=== PATIENT | female | born 2000 | race American Indian/Alaskan Native ===

== ENCOUNTER 2018-07-06 21:15 | Emergency (ER) | payer SELFPAY ==
[2018-07-06] MEDS ORDERED: XYLOCAINE 2%/EPI 1:100,000 INFILTRATI ONE (22:31)
[2018-07-06] MEDS ORDERED: REGLAN IV ONE (22:31)
[2018-07-06] MEDS ORDERED: BENADRYL IV ONE (22:31)
--- NOTE | 2018-07-06 22:36 | Emergency Department Report ---
ED General Adult HPI - General Chief complaint: Seizure Stated complaint: HDZ Time Seen by Provider: 07/06/18 22:12 Source: patient, EMS (ems notes not available at time of chart dictation), RN notes reviewed Mode of arrival: Stretcher Limitations: No Limitations - History of Present Illness Initial comments: This is a 18-year-old female who is not known to this provider previously. 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 She reports no chronic medical conditions. She presents to the ER today with the complaints of headache, and possible seizure. She reports that at 8:30 PM, she was in her usual state of health when she experienced a left-sided stabbing headache. She reports the headache lasted until she got to the emergency room, and reports that a remained at the same level of intensity. She reports the headache was the same intensity during the entire duration of the headache. She did not have nausea or vomiting. The headache did not radiate anywhere, and she endorses no exacerbating or relieving factors. She reports no nausea or vomiting. She reports no neck pain or neck stiffness. She further reports that she had a headache similar to this one year ago, does not think that it was stronger. She currently has no complaints at this time, and indicates that her headache has mostly resolved. She may have had some convulsive activity in the field, but she can't recall. She denies chest pain, abdominal pain, shortness of breath, extremity weakness, extremity numbness. She has no family history of aneurysmal subarachnoid hemorrhage that she can recall. -: Sudden Location: face Radiation: non-radiation Consistency: now resolved Improves with: none Worsens with: none Associated Symptoms: headaches, seizure. denies: confusion, chest pain, cough, diaphoresis, fever/chills, loss of appetite, malaise, nausea/vomiting, rash, shortness of breath, weakness - Related Data Allergies Allergy/AdvReac Type Severity Reaction Status Date / Time No Known Allergies Allergy Verified 07/06/18 22:41 ED Review of Systems ROS: Stated complaint: HDZ Other details as noted in HPI Constitutional: denies: fever Eyes: denies: eye discharge ENT: denies: epistaxis Respiratory: denies: cough Cardiovascular: denies: chest pain Gastrointestinal: denies: abdominal pain Genitourinary: denies: dysuria Musculoskeletal: denies: back pain Skin: denies: lesions Neurological: headache Psychiatric: anxiety ED Past Medical Hx - Past Medical History Previous Medical History?: Yes Hx Seizures: Yes Additional medical history: anxiety - Surgical History Past Surgical History?: No - Social History Smoking Status: Current Every Day Smoker Substance Use Type: None ED Physical Exam - General Limitations: No Limitations General appearance: alert, in no apparent distress - Head Head exam: Present: atraumatic, normocephalic - Eye Eye exam: Present: normal appearance, PERRL, EOMI, other (visual acuity intact to finger counting, color perception, reading at a close distance). Absent: nystagmus - ENT ENT exam: Present: normal exam, normal orophraynx, mucous membranes moist, normal external ear exam - Neck Neck exam: Present: normal inspection, full ROM. Absent: tenderness, meningismus - Respiratory Respiratory exam: Present: normal lung sounds bilaterally. Absent: respiratory distress - Cardiovascular Cardiovascular Exam: Present: regular rate, normal rhythm, normal heart sounds. Absent: bradycardia, tachycardia, irregular rhythm, systolic murmur, diastolic murmur, rubs, gallop - GI/Abdominal GI/Abdominal exam: Present: soft, normal bowel sounds. Absent: distended, tenderness, guarding, rebound, rigid, pulsatile mass - Extremities Exam Extremities exam: Present: normal inspection, full ROM, normal capillary refill , other (2+ pulses noted in the bilateral upper, lower extremities. Compartments soft. No long bony tenderness. The pelvis is stable.). Absent: pedal edema, joint swelling, calf tenderness - Back Exam Back exam: Present: normal inspection, full ROM. Absent: tenderness, CVA tenderness (R), paraspinal tenderness, vertebral tenderness - Neurological Exam Neurological exam: Present: alert, oriented X3, CN II-XII intact, normal gait, other (Extraocular movements intact. Tongue midline. No facial droop. Facial sensation intact to light touch in the V1, V2, V3 distribution bilaterally. 5 and 5 strength in 4 extremities.. Sensation is intact to light touch in 4 extremities.). Absent: motor sensory deficit - Psychiatric Psychiatric exam: Present: anxious - Skin Skin exam: Present: warm, dry, intact, normal color. Absent: rash ED Course Vital Signs 07/06/18 22:14 Temperature 98.6 F Pulse Rate 73 Blood Pressure 140/70 O2 Sat by Pulse 100 Oximetry - Reevaluation(s) Reevaluation #1: 07/06/18 22:53 Differential diagnosis, clearly not limited to: Seizure, pseudoseizure, intracranial mass lesion, intracranial hemorrhage, drug abuse, conversion disorder Assessment and plan: 18-year-old female with history of headache and possible seizure versus convulsion. She is currently afebrile with reassuring vital signs, walks with a steady gait , has a GCS of 15, with an NIH score of 0. She is in no distress at this time. She has a minimal headache at this time. She has no meningismus. She has no neck pain or neck stiffness at this time. She is not hypertensive and has no family history of aneurysm that she is aware of. Furthermore, on her open-ended history, she did not describe her headache as thunderclap, she did not offer that the headache was the most intense or worst of her life. In addition, her history is somewhat inconsistent as she indicated a similar headache last year, and then indicated around 10 minutes later that she had had a headache like this before. Given her inconsistent history, and her benign clinical appearance, and her nonspecific convulsions, it is my opinion that the risks of an invasive tests like a spinal tap are not indicated. 07/06/18 22:54 07/06/18 22:57 07/06/18 23:00 Reevaluation #2: 07/07/18 01:58 CT scan of the brain is negative. Angiogram the brain is negative. Patient has been observed in the ER for approximately 4-1/2 hours without clinical decompensation. Her urinalysis does not corroborate urinary tract infection. She is in no distress and the patient has not had any convulsive event. Her urine toxicology screen suggests the presence of cannabinoids. Patient is instructed to not drive for the next 6 months, to discontinue cannabis consumption if she is is indeed doing so, she is instructed to follow up with outpatient neurologist for further evaluation. ED Medical Decision Making - Lab Data Result diagrams: 07/06/18 22:47 07/06/18 22:47 - EKG Data -: EKG Interpreted by Me EKG shows normal: sinus rhythm - EKG Data When compared to previous EKG there are: previous EKG unavailable 07/06/18 22:57 Sinus, 64 bpm, normal axis, motion artifact, metastatic, low voltage in the lateral leads. Critical care attestation.: If time is entered above; I have spent that time in minutes in the direct care of this critically ill patient, excluding procedure time. ED Disposition Clinical Impression: History of convulsions Disposition: DC-01 TO HOME OR SELFCARE Is pt being admited?: No Does the pt Need Aspirin: No Condition: Stable Instructions: New-Onset Seizure in Adults (ED), Medicinal Use of Cannabis (ED) Additional Instructions: Do not drive or operate motor vehicles the next 6 months. Urinalysis demonstrated presence of marijuana. The patient is consuming marijuana she should discontinue this. Please follow up with any of the listed neurology specialist or a primary care doctor within the next 7-10 days. Return to the ER right away with new pain, worsened pain, migration of pain, projectile vomiting, change in mental status, confusion, inability to tolerate liquid feeds. The patient should not drive or operate motor vehicles until cleared by a neurology specialist or primary care doctor. Referrals: PRIMARY MD ANNA [Primary Care Provider] - 3-5 Days PATRICK CHING MD [Referring] - 3-5 Days SHENG ARRIAGA MD [Staff Physician] - 3-5 Days MEGAN CRUZ MD [Staff Physician] - 3-5 Days [facility] [Provider Group] - 3-5 Days
[2018-07-06] MEDS ORDERED: NACL 0.9% 500 ML 500 ML IV SCH (23:00)
[2018-07-06 23:19] LABS: Hematocrit 35.8 % (30.3-42.9); Mean Corpuscular HGB Conc 34 % (30-34); Mean Corpuscular Hemoglobin 31 pg (28-32); Mean Corpuscular Volume 92 fl (79-97); Platelet Count 223 K/mm3 (140-440); Red Blood Count 3.88 M/mm3 (3.65-5.03); Red Cell Distribution Width 13.1 % (13.2-15.2)
[2018-07-06 23:37] LABS: INR 0.96 (0.87-1.13)
[2018-07-06 23:38] LABS: Partial Thromboplastin Time 23.6 Sec. (24.2-36.6)
[2018-07-06 23:50] LABS: Bilirubin,Urine NEG (Negative); Blood,Urine NEG (Negative); Color,Urine Yellow (Yellow); Mucus,Urine FEW /HPF; Protein,Urine <15 mg/dL mg/dL (Negative); WBC,Urine < 1.0 /HPF (0.0-6.0)
[2018-07-06 23:59] LABS: BUN/Creatinine Ratio 11; Blood Urea Nitrogen 9 mg/dL (7-17); Hemolysis Index 23
[2018-07-07 00:15] LABS: Amphetamine Screen,Urine PRESUMPTIVE NEGATIVE; Benzodiazepines Screen,Urine PRESUMPTIVE NEGATIVE; Cocaine Screen,Urine PRESUMPTIVE NEGATIVE; Methadone Screen,Urine PRESUMPTIVE NEGATIVE; Opiate Screen,Urine PRESUMPTIVE NEGATIVE
[2018-07-07 00:45] LABS: Cannabinoid Screen,Urine PRESUMPTIVE POSITIVE
--- NOTE | 2018-07-07 01:22 | Cat Scan Report ---
FINAL REPORT PROCEDURE: CT HEAD/BRAIN WO CON TECHNIQUE: Computerized tomography of the head was performed without contrast material. HISTORY: headache ? seizure COMPARISON: No prior studies are available for comparison. FINDINGS: Skull and scalp: Normal. Paranasal sinuses: Normal. Ventricles and subarachnoid spaces: Normal. Cerebrum: No evidence of hemorrhage, acute infarction or mass . Cerebellum and brainstem: No evidence of hemorrhage, acute infarction or mass. Vasculature: Normal. Comments: None. IMPRESSION: Normal Examination
--- NOTE | 2018-07-07 01:49 | Cat Scan Report ---
FINAL REPORT PROCEDURE: CT ANGIO HEAD TECHNIQUE: Computerized tomographic angiography of the head was performed after the IV injection of iodinated nonionic contrast including image processing. The image data was postprocessed using 2-dimensional multiplanar reformatted (MPR) and 3-dimensional (MIP and/or volume rendered) techniques. HISTORY: headache w seizure COMPARISON: No prior studies are available for comparison. FINDINGS: Cerebrum: No evidence of hemorrhage, acute ischemia or mass. Cerebellum: No evidence of hemorrhage, acute ischemia or mass. Subarachnoid spaces and ventricles: Normal. Intracranial vessels: Carotid siphon: Normal. Anterior cerebral: Normal. Middle cerebral: Normal. Posterior cerebral:Normal. Vertebral arteries including basilar: Normal. Aneurysms: None. Dural sinuses: Normal. IMPRESSION: Normal Examination.
[2018-07-07 02:05] VITALS: BP 112/55
== END 2018-07-07 02:04 | disposition home or self-care (01) ==
LOC: ED 21:15
DX: R56.9 Unspecified convulsions (principal); F41.9 Anxiety disorder, unspecified; F17.200 Nicotine dependence, unspecified, uncomplicated
CPT/HCPCS: 36415; 70450; 70496; 80048; 80307; 81001; 82550; 83735; 84443; 84703; 85027; 85610; 85730; 93005; 93010; 96374; 96375; 99285; J1200; J2765; J7040; Q9967

== ENCOUNTER 2019-05-27 16:33 | Emergency (ER) | payer MEDICAID ==
[2019-05-27] MEDS ORDERED: TYLENOL PO ONE (18:08)
--- NOTE | 2019-05-27 18:13 | Emergency Department Report ---
ED Seizure HPI - General Chief Complaint: Seizure Stated Complaint: SEIZURES Time Seen by Provider: 05/27/19 18:07 Source: patient, EMS Mode of arrival: Stretcher Limitations: No Limitations - History of Present Illness Initial Comments: 19 yo F presents to ED following 2 seizures at home. Pt states she has been compliant with her Keppra, but missed her AM dose today. Last seizure 2-3 months ago. Believes today's seizures due to lack of sleep. Reports mild HDZ. Complaint: seizure -: This afternoon Description of Episode: loss of consciousness, tonic-clonic movement Witnessed:: Yes Trauma: No Seizure History: known seizure disorder, compliant with medication (but missed this morning's dose) Place: home Possible Precipitating Event: lack of sleep Associated Symptoms: other (headache) Treatments Prior to Arrival: none - Related Data Previous Rx's Medication Instructions Recorded Last Taken Type levETIRAcetam [Keppra TAB] 1,000 mg PO TID #60 tablet 05/27/19 Unknown Rx Allergies Allergy/AdvReac Type Severity Reaction Status Date / Time No Known Allergies Allergy Verified 07/06/18 22:41 ED Review of Systems ROS: Stated complaint: SEIZURES Other details as noted in HPI Comment: All other systems reviewed and negative Constitutional: denies: chills, fever Respiratory: denies: cough Cardiovascular: denies: chest pain Gastrointestinal: denies: abdominal pain Neurological: headache ED Past Medical Hx - Past Medical History Previous Medical History?: Yes Hx Seizures: Yes Additional medical history: anxiety - Surgical History Past Surgical History?: No - Social History Smoking Status: Never Smoker Substance Use Type: None - Medications Home Medications: Home Medications Medication Instructions Recorded Confirmed Last Taken Type levETIRAcetam [Keppra TAB] 1,000 mg PO TID #60 tablet 05/27/19 Unknown Rx ED Physical Exam - General Limitations: No Limitations General appearance: alert, in no apparent distress - Head Head exam: Present: atraumatic, normocephalic - Eye Eye exam: Present: normal appearance, PERRL, EOMI - ENT ENT exam: Present: mucous membranes moist - Neck Neck exam: Present: normal inspection - Respiratory Respiratory exam: Present: normal lung sounds bilaterally. Absent: respiratory distress - Cardiovascular Cardiovascular Exam: Present: regular rate, normal rhythm - GI/Abdominal GI/Abdominal exam: Present: soft. Absent: distended - Extremities Exam Extremities exam: Present: normal inspection - Neurological Exam Neurological exam: Present: alert, oriented X3, CN II-XII intact. Absent: motor sensory deficit - Psychiatric Psychiatric exam: Present: normal affect, normal mood - Skin Skin exam: Present: warm, dry, intact, normal color ED Course Vital Signs 05/27/19 05/27/19 16:58 19:20 Temperature 98.3 F 98.1 F Pulse Rate 84 81 Respiratory 16 15 Rate Blood Pressure 143/77 Blood Pressure 116/76 [Right] O2 Sat by Pulse 99 99 Oximetry ED Medical Decision Making - Lab Data Result diagrams: 05/27/19 18:40 05/27/19 18:40 - Medical Decision Making - keppra given here in ED - labs unremarkable - no seizures here in ED, neuro exam normal - outpt neurology f/u advised - return precautions given Critical care attestation.: If time is entered above; I have spent that time in minutes in the direct care of this critically ill patient, excluding procedure time. ED Disposition Clinical Impression: Seizure Disposition: DC-01 TO HOME OR SELFCARE Is pt being admited?: No Condition: Stable Instructions: Recurrent Seizures Adult (ED) Prescriptions: levETIRAcetam [Keppra TAB] 1,000 mg PO TID #60 tablet Referrals: LESLIE CASTILLO MD [Primary Care Provider] - 3-5 Days PATRICK CHING MD [Referring] - 3-5 Days [facility] [Provider Group] - 3-5 Days Time of Disposition: 19:25
[2019-05-27 18:59] LABS: Basophils % (Auto) 0.5 % (0.0-1.8); Eosinophils # (Auto) 0.1 K/mm3 (0.0-0.4); Hematocrit 37.7 % (30.3-42.9); Lymphocytes # (Auto) 1.7 K/mm3 (1.2-5.4); Mean Corpuscular HGB Conc 35 % (30-34); Mean Corpuscular Volume 94 fl (79-97); Monocytes # (Auto) 0.3 K/mm3 (0.0-0.8); Monocytes % (Auto) 7.8 % (0.0-7.3); Platelet Count 227 K/mm3 (140-440); Red Blood Count 4.01 M/mm3 (3.65-5.03); Red Cell Distribution Width 13.1 % (13.2-15.2)
[2019-05-27] MEDS ORDERED: KEPPRA 1,000 MG/NS 0.75% 100ML 1,000 MG/100 ML BAG IV ONE (19:00)
[2019-05-27 19:18] LABS: BUN/Creatinine Ratio 17; Blood Urea Nitrogen 15 mg/dL (7-17); Calcium 9.2 mg/dL (8.4-10.2); Hemolysis Index 5
[2019-05-27 19:33] VITALS: BP 116/76
== END 2019-05-27 19:46 | disposition home or self-care (01) ==
LOC: ED 16:33
DX: G40.909 Epilepsy, unspecified, not intractable, without status epilepticus (principal); F41.9 Anxiety disorder, unspecified; Z79.899 Other long term (current) drug therapy
CPT/HCPCS: 36415; 80048; 84703; 85025; 96365; 99284; J1953